=== PATIENT | male | born 1985 | race Caucasian/White ===

== ENCOUNTER 2017-06-10 00:04 | Emergency (ER) | payer MEDICAID ==
[~2017-06-10] VITALS: Ht 182.9 cm; Wt 116.5 kg
[2017-06-10 00:08] VITALS: Ht 182.9 cm; Wt 116.5 kg
--- NOTE | 2017-06-10 03:12 | RADRPT ---
PROCEDURE: Chest. CLINICAL INDICATION: Cough. TECHNIQUE: Single frontal view of the chest was obtained. COMPARISON: 11/30/2013. FINDINGS: There are metallic shrapnel fragments of the left upper chest. The cardiac silhouette is within norm al limits. The aortic arch is unremarkable. There is no focal consolidation, vascular congestion o r pleural effusion. There is no pneumothorax. IMPRESSION: No evidence for active cardiopulmonary disease. .Andrea Heredia MD, MD Date Time Electronically viewed and signed by .Andrea Heredia MD, MD on 06/10/2017 03:11 .T/
--- NOTE | 2017-06-10 03:14 | ERD ---
ER Documentation Chief Complaint Date/Time DATE: 06/10/17 TIME: 03:12 Chief Complaint cough w/ blood streaks x 2 days HPI 32-year-old male presents here in emergency department for complaint of cough for 2 days. Patient has been having dry cough, has been coughing excessively that he noticed some blood streaks in the history of sputum. Patient has been having on and off wheezing. Patient denies any fever or chills. Patient denies any chest pain. Patient denies any palpitations or irregular heartbeat. ROS All systems reviewed and are negative except as per history of present illness. Medications Home Meds Reported Medications [none] Unknown Strength No Conflict Check 06/10/17 Allergies Allergies: Coded Allergies: No Known Allergy (Unverified , 02/10/12) PMhx/Soc History of Surgery: Yes ([facility] Surgery) Anesthesia Reaction: No Hx Neurological Disorder: No Hx Respiratory Disorders: No Hx Cardiac Disorders: No Hx Psychiatric Problems: No Hx Miscellaneous Medical Probl: No Hx Alcohol Use: No Hx Substance Use: No Hx Tobacco Use: Yes (Vaping) Smoking Status: Current every day smoker FmHx Family History: No coronary disease, No diabetes, No other Physical Exam Vitals Vital Signs Date Time Temp Pulse Resp B/P Pulse Ox O2 Delivery O2 Flow Rate FiO2 06/10/17 00:08 98.2 85 20 133/6 99 Physical Exam GENERAL: The patient is well developed and appropriate for usual state of health, in no apparent distress. CHEST: Clear to auscultation bilaterally. There are no rales, wheezes or rhonchi. HEART: Regular rate and rhythm. No murmurs, clicks, rubs or gallops. No S3 or S4. ABDOMEN: Soft, nontender and nondistended. Good bowel sounds. No rebound or guarding. No gross peritonitis. No gross organomegaly or masses. No Gilliland sign or McBurney point tenderness. BACK: No midline or flank tenderness. EXTREMITIES: Equal pulses bilaterally. There is no peripheral clubbing, cyanosis or edema. No focal swelling or erythema. Full range of motion. Grossly neurovascularly intact. NEURO: Alert and oriented. Cranial nerves 2-12 intact. Motor strength in all 4 extremities with 5/5 strength. Sensation grossly intact. Normal speech and gait. SKIN: There is no apparent rash or petechia. The skin is warm and dry. HEMATOLOGIC AND LYMPHATIC: There is no evidence of excessive bruising or lymphedema. No gross cervical, axillary, or inguinal lymphadenopathy. Results 24 hrs PROCEDURE: Chest. CLINICAL INDICATION: Cough. TECHNIQUE: Single frontal view of the chest was obtained. COMPARISON: 11/30/2013. FINDINGS: There are metallic shrapnel fragments of the left upper chest. The cardiac silhouette is within normal limits. The aortic arch is unremarkable. There is no focal consolidation, vascular congestion or pleural effusion. There is no pneumothorax. IMPRESSION: No evidence for active cardiopulmonary disease. .Andrea Heredia MD, Date Time Electronically viewed and signed by .Andrea Heredia MD, on 06/10/2017 03:11 .T/ CC: PRADIP CALDERON [employer] AND [employer] COUNSELLOR Procedures/MDM Medical Decision Making: Patient symptoms are most likely consistent with acute bronchitis, which viral in origin. There is low suspicion for Pneumonia at this time since patients lungs sounds are clear, patient O2 saturation is normal and patient doesnt show any respiratory distress. Patients chest xray doesnt show infiltrates or any other cardiopulmonary emergencies at this time. There is low suspicion for other cardiopulmonary emergencies at this time such as CHF, Pulmonary Embolism, Pneumothorax, or any other cardiopulmonary emergencies at this time. There is low suspicion for sepsis. Patient appears well and is hemodynamically stable. Fever is controlled with medicines. Disposition: Home. Condition: Stable Prescriptions: ProAir, guaifenesin with codeine Zyrtec, ibuprofen Instructions: Patient is advised to take medications as prescribed. Patient is advised to rest. Patient advised to increase fluid intake, do humidifier at home and if possible, do salt water gargles. Patient is advised that if symptoms are worse, shortness of breath, uncontrolled fever, stridor, vomiting, worst signs and symptoms to return to emergency department immediately. Otherwise, patient is advised to follow up with primary doctor in 5-7 days. Departure Diagnosis: Primary Impression: Acute bronchitis Bronchitis organism: unspecified organism Qualified Code: J20.9 - Acute bronchitis, unspecified organism Condition: Stable Patient Instructions: Bronchitis With Wheezing (Adult) Additional Instructions: Patient is advised to take medications as prescribed. Patient is advised to rest. Patient advised to increase fluid intake, do humidifier at home and if possible, do salt water gargles. Patient is advised that if symptoms are worse, shortness of breath, uncontrolled fever, stridor, vomiting, worst signs and symptoms to return to emergency department immediately. Otherwise, patient is advised to follow up with primary doctor in 5-7 days. PRADIP CALDERON NP Jun 10, 2017 03:14
[2017-06-10] MEDS ORDERED: ALBU8.5H3 INH (04:23)
[2017-06-10] MEDS ORDERED: GUAI473L22 PO (04:23)
[2017-06-10] MEDS ORDERED: CETI10CA PO (04:23)
== END 2017-06-10 04:35 | disposition home or self-care (01) ==
LOC: FTE 00:04
DX: J20.9 Acute bronchitis, unspecified (principal); F17.210 Nicotine dependence, cigarettes, uncomplicated
CPT/HCPCS: 71010; Z7502

== ENCOUNTER 2017-07-22 15:18 | Emergency (ER) | payer MEDICAID ==
[~2017-07-22] VITALS: Wt 86.4 kg
[~2017-07-22 15:18] MED LIST: ALBU8.5H3 INH; CETI10CA PO; GUAI473L22 PO
[2017-07-22] MEDS ORDERED: IBUPROFEN 800 MG TAB PO ONE (17:00)
[2017-07-22] MEDS ORDERED: LIDOCAINE 1% (MDV) 20 ML INJ SC ONE (17:00)
[2017-07-22] MEDS ORDERED: DIPHTH/TET/ACEL PERTUSS (ADULT) 0.5 ML VIAL IM* ONE (17:00)
--- NOTE | 2017-07-22 17:49 | RADRPT ---
PROCEDURE: XR Finger. CLINICAL INDICATION: Trauma. Right fifth finger pain. TECHNIQUE: Three views. Frontal, lateral, and oblique. COMPARISON: None available FINDINGS: There is no fracture or dislocation. The soft tissues are normal. Articular surfaces are intact. There is no lytic or blastic lesion. There is no radiopaque foreign body. IMPRESSION: 1. Normal images of the right fifth finger. RPTAT: QQ .Abe Hurtado MD, MD Date Time Electronically viewed and signed by .Abe Hurtado MD, MD on 07/22/2017 17:49 .R/
[2017-07-22] MEDS ORDERED: CEPH-443 PO (18:27)
[2017-07-22] MEDS ORDERED: IBUP-1542 PO (18:27)
--- NOTE | 2017-07-22 18:34 | ERD ---
ER Documentation Chief Complaint Chief Complaint finger lac HPI 32-year-old male patient with no significant past medical history presents to the ED with a right pinky finger injury sustained earlier today. States that he was trying to get a plastic ball off the roof for his left knee when it got stuck and his ring broke off and he sustained a laceration to his right pinky finger. 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 Denies any chest pain, shortness of breath, nausea, vomiting, weakness, numbness or tingling, fever, chills. Patient states that he is not up -to-date with his tetanus vaccine. ROS All systems reviewed and are negative except as per history of present illness. Medications Home Meds Active Scripts Ibuprofen* (Motrin*) 600 Mg Tab, 600 MG PO Q6, #30 TAB Prov:ROSEANN LAUREN PA-C 07/22/17 Cephalexin* (Keflex*) 500 Mg Capsule, 500 MG PO QID for 7 Days, CAP Prov:ROSEANN LAUREN PA-C 07/22/17 Albuterol Sulfate* (Proair HFA*) 8.5 Gm Hfa.aer.ad, 2 PUFF INH Q4H Y for WHEEZING AND SOB, #1 INHALER Prov:PRADIP CALDERON NP 06/10/17 Cetirizine Hcl* (Zyrtec*) 10 Mg Capsule, 10 MG PO DAILY, #30 TAB.CHEW Prov:PRADIP CALDERON NP 06/10/17 Guaifenesin-Codeine Phosphate* (Guaifenesin* AC Cough Syrup) 473 Ml Liquid, 10 ML PO Q4H Y for COUGH, #60 ML Prov:PRADIP CALDERON NP 06/10/17 Reported Medications [none] Unknown Strength No Conflict Check 06/10/17 Allergies Allergies: Coded Allergies: No Known Allergy (Unverified , 02/10/12) PMhx/Soc History of Surgery: Yes ([facility] Surgery) Anesthesia Reaction: No Hx Neurological Disorder: No Hx Respiratory Disorders: No Hx Cardiac Disorders: No Hx Psychiatric Problems: No Hx Miscellaneous Medical Probl: No Hx Alcohol Use: No Hx Substance Use: No Hx Tobacco Use: Yes (Vaping) Physical Exam Vitals Vital Signs Date Time Temp Pulse Resp B/P Pulse Ox O2 Delivery O2 Flow Rate FiO2 07/22/17 15:43 98.0 86 20 130/97 98 Physical Exam Const: Ezv-[id number]-kwrpoaeoe, well-nourished. In no acute distress. Head: Atraumatic, normocephalic Eyes: Normal Conjunctiva without injection ENT: Normal external ear, nose and mouth. Neck: Full range of motion. No meningismus. Resp: Clear to auscultation bilaterally. No wheezing, rhonchi, rales, or crackles. No accessory muscle use. No retractions. Cardio: Regular rate and rhythm, no murmurs Skin: No petechiae or rashes Back: No midline tenderness. No CVA tenderness. Ext: No cyanosis, or edema. Cap refill less than 2 seconds. Distal pulses intact bilaterally. 6 cm laceration noted on the medial aspect of patient's right pinky at the dorsal and volar aspect of patient's right finger. No surrounding erythema. No visualization of foreign bodies or tendons. Chronic deformity noted with deviation fo right pinky finger laterally. Abrasions also noted inferior to the laceration. Neur: Awake and alert. Normal gait and coordination. Muscle strength 5/5. Sensation intact bilaterally. Psych: Normal Mood and Affect Results 24 hrs Current Medications Medications (Trade) Dose Ordered Sig/Evelyne Route PRN Reason Start Time Stop Time Status Last Admin Dose Admin Lidocaine (Xylocaine 1% (Mdv) 20 ml) 20 ml ONCE ONCE SC 07/22/17 17:00 07/22/17 17:01 DC Diphtheria/ Tetanus/Acell Pertussis (Adacel) 0.5 ml ONCE ONCE IM* 07/22/17 17:00 07/22/17 17:01 DC 07/22/17 18:47 Ibuprofen (Motrin) 800 mg ONCE ONCE PO 07/22/17 17:00 07/22/17 17:01 DC 07/22/17 18:46 Procedures/MDM This is a 32-year-old male patient with no significant past medical history presents to the ED complaining of a right pinky finger injury. Patient is afebrile and nontoxic-appearing. Patient has normal vital signs. Patient was given ibuprofen here in the ED with improvement of his symptoms. Patient gave consent to perform laceration repair. Laceration Repair by me: Anesthesia: 1% lidocaine locally Location: Right pinky finger Tendon/Joint/Nerves: No injury Foreign body: None detected after copious irrigation and exploration Technique: 10 5-0 Ethilon Simple Interrupted Sutures Complexity: No subcutaneous sutures/mucosal repair/ edge excision Post Closure Length: [6] cm Patient's bleeding was easily controlled in the department and there is no indication of anemia. Patient is neurovascularly intact. No evidence of compartment syndrome, neurologic injury, vascular injury, open joint, tendon laceration, or foreign body. Patient is appropriate for outpatient follow up. 48 hour wound check. Scar minimization instructions given. Instructed patient to return for suture removal in 7-10 days. Keflex was prescribed to patient for infection prevention. Instructed patient to return to the ED sooner for any worsening symptoms. Follow up with primary care physician in 1-2 days. Patient's questions were answered. Patient understood and agreed with discharge plan. Departure Diagnosis: Primary Impression: Finger injury Encounter type: initial encounter Laterality: right Qualified Code: S69.91XA - Injury of finger of right hand, initial encounter Condition: Stable Patient Instructions: Laceration, Hand Referrals: [facility] YOU HAVE RECEIVED A MEDICAL SCREENING EXAM AND THE RESULTS INDICATE THAT YOU DO NOT HAVE A CONDITION THAT REQUIRES URGENT TREATMENT IN THE EMERGENCY DEPARTMENT. FURTHER EVALUATION AND TREATMENT OF YOUR CONDITION CAN WAIT UNTIL YOU ARE SEEN IN YOUR DOCTORS OFFICE WITHIN THE NEXT 1-2 DAYS. IT IS YOUR RESPONSIBILITY TO MAKE AN APPOINTMENT FOR FOLOW-UP CARE. IF YOU HAVE A PRIMARY DOCTOR --you should call your primary doctor and schedule an appointment IF YOU DO NOT HAVE A PRIMARY DOCTOR YOU CAN CALL OUR PHYSICIAN REFERRAL HOTLINE AT IF YOU CAN NOT AFFORD TO SEE A PHYSICIAN YOU CAN CHOSE FROM THE FOLLOWING [facility] CL[facility]ICS [facility] [address] [facility]. [facility] [address] [facility]. [facility] [address] [facility]. [facility] [address] [facility] [address] [facility]. [facility]. [address] [facility]. [facility] YOU HAVE RECEIVED A MEDICAL SCREENING EXAM AND THE RESULTS INDICATE THAT YOU DO NOT HAVE A CONDITION THAT REQUIRES URGENT TREATMENT IN THE EMERGENCY DEPARTMENT. FURTHER EVALUATION AND TREATMENT OF YOUR CONDITION CAN WAIT UNTIL YOU ARE SEEN IN YOUR DOCTORS OFFICE WITHIN THE NEXT 1-2 DAYS. IT IS YOUR RESPONSIBILITY TO MAKE AN APPOINTMENT FOR FOLOW-UP CARE. IF YOU HAVE A PRIMARY DOCTOR --you should call your primary doctor and schedule and appointment IF YOU DO NOT HAVE A PRIMARY DOCTOR YOU CAN CALL OUR PHYSICIAN REFERRAL HOTLINE AT . IF YOU CAN NOT AFFORD TO SEE A PHYSICIAN YOU CAN CHOSE FROM THE FOLLOWING COUNTS INCLUDE 234 BEDS AT THE [facility] INSTITUTIONS: [facility] [address] [place] [address] [facility] [address] [place], [place] [id number] [place] [address] [address] [place] [address] [facility] URGENT CARE/SPECIALTIES Additional Instructions: Call your primary care doctor TOMORROW for an appointment during the next 2-3 days.See the doctor sooner or return here if your condition worsens before your appointment time. Follow up in 2 days in your clinic for wound check. Follow up with your physician to remove the stitches:For Face wounds 5-7 days.For Elsewhere on the body 7-10 days. ROSEANN LAUREN PA-C Jul 22, 2017 18:34
--- NOTE | 2017-07-22 18:34 | ERD ---
ER Documentation Chief Complaint Chief Complaint finger lac HPI 32-year-old male patient with no significant past medical history presents to the ED with a right pinky finger injury sustained earlier today. States that he was trying to get a plastic ball off the roof for his left knee when it got stuck and his ring broke off and he sustained a laceration to his right pinky finger. 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 Denies any chest pain, shortness of breath, nausea, vomiting, weakness, numbness or tingling, fever, chills. Patient states that he is not up -to-date with his tetanus vaccine. ROS All systems reviewed and are negative except as per history of present illness. Medications Home Meds Active Scripts Ibuprofen* (Motrin*) 600 Mg Tab, 600 MG PO Q6, #30 TAB Prov:ROSEANN LAUREN PA-C 07/22/17 Cephalexin* (Keflex*) 500 Mg Capsule, 500 MG PO QID for 7 Days, CAP Prov:ROSEANN LAUREN PA-C 07/22/17 Albuterol Sulfate* (Proair HFA*) 8.5 Gm Hfa.aer.ad, 2 PUFF INH Q4H Y for WHEEZING AND SOB, #1 INHALER Prov:PRADIP CALDERON NP 06/10/17 Cetirizine Hcl* (Zyrtec*) 10 Mg Capsule, 10 MG PO DAILY, #30 TAB.CHEW Prov:PRADIP CALDERON NP 06/10/17 Guaifenesin-Codeine Phosphate* (Guaifenesin* AC Cough Syrup) 473 Ml Liquid, 10 ML PO Q4H Y for COUGH, #60 ML Prov:PRADIP CALDERON NP 06/10/17 Reported Medications [none] Unknown Strength No Conflict Check 06/10/17 Allergies Allergies: Coded Allergies: No Known Allergy (Unverified , 02/10/12) PMhx/Soc History of Surgery: Yes ([facility] Surgery) Anesthesia Reaction: No Hx Neurological Disorder: No Hx Respiratory Disorders: No Hx Cardiac Disorders: No Hx Psychiatric Problems: No Hx Miscellaneous Medical Probl: No Hx Alcohol Use: No Hx Substance Use: No Hx Tobacco Use: Yes (Vaping) Physical Exam Vitals Vital Signs Date Time Temp Pulse Resp B/P Pulse Ox O2 Delivery O2 Flow Rate FiO2 07/22/17 15:43 98.0 86 20 130/97 98 Physical Exam Const: [id number], well-nourished. In no acute distress. Head: Atraumatic, normocephalic Eyes: Normal Conjunctiva without injection ENT: Normal external ear, nose and mouth. Neck: Full range of motion. No meningismus. Resp: Clear to auscultation bilaterally. No wheezing, rhonchi, rales, or crackles. No accessory muscle use. No retractions. Cardio: Regular rate and rhythm, no murmurs Skin: No petechiae or rashes Back: No midline tenderness. No CVA tenderness. Ext: No cyanosis, or edema. Cap refill less than 2 seconds. Distal pulses intact bilaterally. 6 cm laceration noted on the medial aspect of patient's right pinky at the dorsal and volar aspect of patient's right finger. No surrounding erythema. No visualization of foreign bodies or tendons. Chronic deformity noted with deviation fo right pinky finger laterally. Abrasions also noted inferior to the laceration. Neur: Awake and alert. Normal gait and coordination. Muscle strength 5/5. Sensation intact bilaterally. Psych: Normal Mood and Affect Results 24 hrs Current Medications Medications (Trade) Dose Ordered Sig/Evelyne Route PRN Reason Start Time Stop Time Status Last Admin Dose Admin Lidocaine (Xylocaine 1% (Mdv) 20 ml) 20 ml ONCE ONCE SC 07/22/17 17:00 07/22/17 17:01 DC Diphtheria/ Tetanus/Acell Pertussis (Adacel) 0.5 ml ONCE ONCE IM* 07/22/17 17:00 07/22/17 17:01 DC 07/22/17 18:47 Ibuprofen (Motrin) 800 mg ONCE ONCE PO 07/22/17 17:00 07/22/17 17:01 DC 07/22/17 18:46 Procedures/MDM This is a 32-year-old male patient with no significant past medical history presents to the ED complaining of a right pinky finger injury. Patient is afebrile and nontoxic-appearing. Patient has normal vital signs. Patient was given ibuprofen here in the ED with improvement of his symptoms. Patient gave consent to perform laceration repair. Laceration Repair by me: Anesthesia: 1% lidocaine locally Location: Right pinky finger Tendon/Joint/Nerves: No injury Foreign body: None detected after copious irrigation and exploration Technique: 10 5-0 Ethilon Simple Interrupted Sutures Complexity: No subcutaneous sutures/mucosal repair/ edge excision Post Closure Length: [6] cm Patient's bleeding was easily controlled in the department and there is no indication of anemia. Patient is neurovascularly intact. No evidence of compartment syndrome, neurologic injury, vascular injury, open joint, tendon laceration, or foreign body. Patient is appropriate for outpatient follow up. 48 hour wound check. Scar minimization instructions given. Instructed patient to return for suture removal in 7-10 days. Keflex was prescribed to patient for infection prevention. Instructed patient to return to the ED sooner for any worsening symptoms. Follow up with primary care physician in 1-2 days. Patient's questions were answered. Patient understood and agreed with discharge plan. Departure Diagnosis: Primary Impression: Finger injury Encounter type: initial encounter Laterality: right Qualified Code: S69.91XA - Injury of finger of right hand, initial encounter Condition: Stable Patient Instructions: Laceration, Hand Referrals: [facility] YOU HAVE RECEIVED A MEDICAL SCREENING EXAM AND THE RESULTS INDICATE THAT YOU DO NOT HAVE A CONDITION THAT REQUIRES URGENT TREATMENT IN THE EMERGENCY DEPARTMENT. FURTHER EVALUATION AND TREATMENT OF YOUR CONDITION CAN WAIT UNTIL YOU ARE SEEN IN YOUR DOCTORS OFFICE WITHIN THE NEXT 1-2 DAYS. IT IS YOUR RESPONSIBILITY TO MAKE AN APPOINTMENT FOR FOLOW-UP CARE. IF YOU HAVE A PRIMARY DOCTOR --you should call your primary doctor and schedule an appointment IF YOU DO NOT HAVE A PRIMARY DOCTOR YOU CAN CALL OUR PHYSICIAN REFERRAL HOTLINE AT IF YOU CAN NOT AFFORD TO SEE A PHYSICIAN YOU CAN CHOSE FROM THE FOLLOWING [facility] [address] [facility]. [facility] [address] [facility]. [facility] [address] [facility]. [facility] [address] [facility] [address] [facility]. [facility]. [address] [facility]. [facility] YOU HAVE RECEIVED A MEDICAL SCREENING EXAM AND THE RESULTS INDICATE THAT YOU DO NOT HAVE A CONDITION THAT REQUIRES URGENT TREATMENT IN THE EMERGENCY DEPARTMENT. FURTHER EVALUATION AND TREATMENT OF YOUR CONDITION CAN WAIT UNTIL YOU ARE SEEN IN YOUR DOCTORS OFFICE WITHIN THE NEXT 1-2 DAYS. IT IS YOUR RESPONSIBILITY TO MAKE AN APPOINTMENT FOR FOLOW-UP CARE. IF YOU HAVE A PRIMARY DOCTOR --you should call your primary doctor and schedule and appointment IF YOU DO NOT HAVE A PRIMARY DOCTOR YOU CAN CALL OUR PHYSICIAN REFERRAL HOTLINE AT . IF YOU CAN NOT AFFORD TO SEE A PHYSICIAN YOU CAN CHOSE FROM THE FOLLOWING [facility] INSTITUTIONS: [facility] [address] [place] [address] [facility] [address] [place], [place] [id number] [place] [address] [address] [place] [address] [facility] URGENT CARE/SPECIALTIES Additional Instructions: Call your primary care doctor TOMORROW for an appointment during the next 2-3 days.See the doctor sooner or return here if your condition worsens before your appointment time. Follow up in 2 days in your clinic for wound check. Follow up with your physician to remove the stitches:For Face wounds 5-7 days.For Elsewhere on the body 7-10 days. ROSEANN LAUREN PA-C Jul 22, 2017 18:34
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
== END 2017-07-22 18:55 | disposition home or self-care (01) ==
LOC: FTE 15:18
DX: S61.216A Laceration without foreign body of right little finger without damage to nail, initial encounter (principal); W22.8XXA Striking against or struck by other objects, initial encounter; Y92.9 Unspecified place or not applicable; Z23 Encounter for immunization; Z87.891 Personal history of nicotine dependence
CPT/HCPCS: 12002; 73130; 90471; 90715; Z7502; Z7610

== ENCOUNTER 2017-08-24 20:47 | Emergency (ER) | payer MEDICAID, OTHER ==
[~2017-08-24] VITALS: Ht 180.3 cm; Wt 121.8 kg
[~2017-08-24 20:47] MED LIST changes: +CEPH-443 PO; +IBUP-1542 PO
[2017-08-24 20:50] VITALS: Ht 180.3 cm; Wt 121.8 kg
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
[2017-08-24 23:30] LABS: BASOPHIL # 0.1 10^3/ul (0.0-0.1); BASOPHILS % 0.6 % (0.0-2.0); EOSINOPHILS # 0.3 10^3/ul (0.0-0.5); EOSINOPHILS % 3.6 % (0.0-7.0); HEMATOCRIT 41.2 % (42.0-52.0); HEMOGLOBIN 14.1 g/dl (14.0-18.0); LYMPHOCYTES # 2.6 10^3/ul (0.8-2.9); LYMPHOCYTES % 31.8 % (15.0-51.0); MEAN CORPUSCULAR HEMOGLOBIN 28.6 pg (29.0-33.0); MEAN CORPUSCULAR HGB CONC 34.2 g/dl (32.0-37.0); MEAN CORPUSCULAR VOLUME 83.6 fl (82.0-101.0); MEAN PLATELET VOLUME 10.6 fl (7.4-10.4); MONOCYTE # 0.8 10^3/ul (0.3-0.9); MONOCYTES % 10.3 % (0.0-11.0); NEUTROPHIL # 4.4 10^3/ul (1.6-7.5); NEUTROPHILS % 53.3 % (39.0-77.0); PLATELET COUNT 269 10^3/UL (140-415); RED BLOOD COUNT 4.93 10^6/ul (4.70-6.10); RED CELL DISTRIBUTION WIDTH 12.4 % (11.5-14.5); WHITE BLOOD COUNT 8.2 10^3/ul (4.8-10.8)
--- NOTE | 2017-08-24 23:32 | RADRPT ---
PROCEDURE: CT Abdomen and Pelvis without contrast. CLINICAL INDICATION: Abdominal pain TECHNIQUE: CT scan of the abdomen and pelvis without contrast was performed on a multi-detector hi gh-resolution CT scanner. The patient was scanned without IV contrast. Coronal and sagittal reformat mary grace images were obtained from the axial source images. DICOM images are available. CTDI equals 22.5 mGy, and DLP equals 1548.31 mGy-cm. One or more of the following dose reduction techniques were used: - Automated exposure control. - Adjustment of the mA and/or kV according to patient size. - Use of iterative reconstruction technique. COMPARISON: None. FINDINGS: Lower thorax: Unremarkable. Liver: Unremarkable. No focal mass. Biliary: Unremarkable gallbladder. No biliary dilatation. Pancreas: Unremarkable. Spleen: Unremarkable. Adrenal Glands: Unremarkable. Genitourinary: Unremarkable. Gastrointestinal: There is sigmoid diverticulosis without evidence of acute diverticulitis. No evide nce of bowel obstruction or focal bowel wall thickening. A normal-appearing appendix is identified i n the right lower quadrant. Lymph nodes: No lymphadenopathy. Vascular: Unremarkable. Peritoneum/mesentery: Unremarkable. No free fluid or free air. Reproductive organs: Unremarkable. There is small bilateral fat containing inguinal hernias. Musculoskeletal: Unremarkable. IMPRESSION: 1. Sigmoid diverticulosis without evidence of acute diverticulitis. 2. Small bilateral fat containing inguinal hernias. RPTAT: HRC Physician Anette Date Time Electronically viewed and signed by Physician Anette on 08/24/2017 23:32 /
[2017-08-24 23:33] LABS: ADD UMIC NO; UR ASCORBIC ACID 20 mg/dL (NEGATIVE); UR BILIRUBIN (Dip) NEGATIVE (NEGATIVE); UR BLOOD (Dip) NEGATIVE (NEGATIVE); UR CLARITY CLEAR (CLEAR); UR COLOR YELLOW (YELLOW); UR GLUCOSE (Dip) NEGATIVE (NEGATIVE); UR KETONES (Dip) NEGATIVE (NEGATIVE); UR LEUKOCYTE ESTERASE (Dip) NEGATIVE Leu/ul (NEGATIVE); UR NITRITE (Dip) NEGATIVE (NEGATIVE); UR SPECIFIC GRAVITY (Dip) 1.016 (1.003-1.030); UR TOTAL PROTEIN (Dip) NEGATIVE (NEGATIVE); UR UROBILINOGEN (Dip) NEGATIVE (NEGATIVE)
[2017-08-24 23:55] LABS: ALBUMIN/GLOBULIN RATIO 1.17; BILIRUBIN,INDIRECT 0.1 mg/dl (0-1.1); BILIRUBIN,TOTAL 0.1 mg/dl (0.2-1.3); CALCIUM 9.7 mg/dl (8.4-10.2); CREATININE 0.86 mg/dl (0.61-1.24); POTASSIUM 4.1 mmol/L (3.5-5.1); TOTAL PROTEIN 7.4 g/dl (6.1-8.1)
[2017-08-25] MEDS ORDERED: IBUP-1542 PO (00:16)
[2017-08-25] MEDS ORDERED: AMOX500C2 PO (00:16)
[2017-08-25] MEDS ORDERED: ACET500C5 PO (00:16)
== END 2017-08-25 00:22 | disposition home or self-care (01) ==
LOC: FTE 20:47
DX: K57.31 Diverticulosis of large intestine without perforation or abscess with bleeding (principal); J02.9 Acute pharyngitis, unspecified
CPT/HCPCS: 36415; 74176; 80053; 81003; 83690; 85025; Z7502

== ENCOUNTER 2018-07-19 12:36 | Emergency (ER) | END 2018-07-19 17:25 | disposition home or self-care (01) ==

== ENCOUNTER 2018-08-28 18:38 | Emergency (ER) | END 2018-08-28 19:56 | disposition home or self-care (01) ==